=== PATIENT | female | born 1960 | race Hispanic/Latino ===

== ENCOUNTER 2018-07-23 08:47 | Emergency (ER) | payer BC | END 2018-07-23 10:15 | disposition home or self-care (01) | LOC: EDH 08:47 | DX: S96.212A Strain of intrinsic muscle and tendon at ankle and foot level, left foot, initial encounter (principal); E11.9 Type 2 diabetes mellitus without complications; I10 Essential (primary) hypertension; E78.5 Hyperlipidemia, unspecified; X58.XXXA Exposure to other specified factors, initial encounter; Y93.01 Activity, walking, marching and hiking; Y92.098 Other place in other non-institutional residence as the place of occurrence of the external cause; Y99.8 Other external cause status | CPT/HCPCS: 73610; 73620 ==

== ENCOUNTER 2024-01-09 10:24 | Emergency (ER) | payer BC, OTHER ==
[~2024-01-09] VITALS: Ht 172.7 cm; Wt 127.0 kg
--- NOTE | 2024-01-09 10:37 | ERN ---
General Chief Complaint: Abdominal Pain Stated Complaint: RUQ PAIN Time Seen by MD: 10:26 Time Seen by Midlevel: 10:26 Source: patient History of Present Illness Initial Comments 63-year-old female who presents to the ED due to abdominal pain ongoing for seven months. Patient reports pain has initiated since she had her gallbladder removed in [place] [address] Love. Patient states she has been having diarrhea but denies any fever, nausea, vomiting or further associated symptoms. Patient denies any significant past medical history. Allergies: Coded Allergies: No Known Allergies (Unverified Allergy, Unknown, 07/23/18) latex (Unverified Allergy, Unknown, PEELING OF SKIN, 07/23/18) Past Medical History Past Medical History: Diabetes-Type II, Hypertension Medical History Other: SLEEP APNEA, FATTY LIVER Past Surgical History: Cholecystectomy Surgical History Other: KNEE ROS Dictation Constitutional: Negative for fever,chills, and weight loss Eyes: Negative for injury, pain,redness, and discharge ENT: Negative for injury,pain or swelling Cardiovascular: Negative for chest pain, palpitations, and edema Respiratory: Negative for shortness of breath, cough, and wheezing, Abdomen/GI: Positive for abdominal pain Negative for nausea, vomiting, diarrhea, and constipation Back: Negative for injury and pain : Negative for painful urination, bleeding or discharge MS/Extremity: Negative for injury and deformity Skin: Negative for rash, and discoloration Neuro: Negative for headache, weakness, numbness, tingling, and seizure Psych: Negative for suicide ideation, homicidal ideation, and hallucinations Physical Exam Physical Exam Dictation General: awake, alert, no acute distress Head/Face: Normocephalic, atraumatic Eyes: normal conjunctiva ENT: oral cavity clear, oral mucosa moist Neck: Trachea midline, supple, no nuchal rigidity Cardiovascular: RRR, normal S1/S2 Respiratory: CTAB, no respiratory distress, no rales or wheezes Abdomen: Soft, non-tender, non-distended, no guarding or rebound. Skin: Warm, dry, normal turgor, no rash MS/Extremity: Pulses equal, no cyanosis, neurovascular intact, FROM Neuro: COAx4, GCS 15, no neurological deficits, normal gait, Psych: Normal behavior, mood, and affect normal Results Laboratory and Microbiology Lab and Micro Result Laboratory Tests Test 01/09/24 10:41 01/09/24 11:39 White Blood Count 6.5 K/uL (4.8-10.8) Red Blood Count 4.27 MIL/uL (4.00-5.50) Hemoglobin 13.1 g/dL (12.0-16.0) Hematocrit 39.4 % (36-48) Mean Corpuscular Volume 92.3 fL (79-99) Mean Corpuscular Hemoglobin 30.7 pg (27.0-33.0) Mean Corpuscular Hemoglobin Concent 33.2 g/dL (32.0-36.0) Red Cell Distribution Width 14.0 % (11.0-15.5) Platelet Count 255 K/uL (130-400) Mean Platelet Volume 10.0 fL (7.5-10.5) Immature Granulocyte % (Auto) 0.3 % (0-1) Neutrophils (%) (Auto) 50.1 % (40.0-77.0) Lymphocytes (%) (Auto) 38.7 % (21.0-51.0) Monocytes (%) (Auto) 6.9 % (3.0-13.0) Eosinophils (%) (Auto) 3.4 % (0.0-8.0) Basophils (%) (Auto) 0.6 % (0.0-5.0) Neutrophils # (Auto) 3.3 K/uL (1.8-7.7) Lymphocytes # (Auto) 2.5 K/uL (1.0-4.8) Monocytes # (Auto) 0.5 K/uL (0.1-1.0) Eosinophils # (Auto) 0.22 K/uL (0.00-0.70) Basophils # (Auto) 0.04 K/uL (0.00-0.20) Absolute Immature Granulocyte (auto 0.02 K/uL (0-1) Nucleated Red Blood Cells 0.0 % (0.0-0.19) Sodium Level 142 mmol/L (136-145) Potassium Level 4.4 mmol/L (3.5-5.1) Chloride Level 107 mmol/L (101-111) Carbon Dioxide Level 28 mmol/L (21-32) Blood Urea Nitrogen 20 mg/dL (7-18) H Creatinine 1.2 mg/dL (0.5-1.0) H Glomerular Filtration Rate Calc 52 mL/min (>90) Random Glucose 100 mg/dL (70-105) Total Calcium 9.4 mg/dL (8.5-10.1) Total Bilirubin 0.4 mg/dL (0.2-1.0) Aspartate Amino Transf (AST/SGOT) 34 U/L (10-37) Alanine Aminotransferase (ALT/SGPT) 35 U/L (12-78) Alkaline Phosphatase 71 U/L (50-136) Troponin I High Sensitivity 4 ng/L (4-50) Total Protein 7.6 g/dL (6.0-8.3) Albumin 3.6 g/dL (3.5-5.0) Lipase 177 U/L (16-77) H Urine Color LIGHT-YELLOW (YELLOW) Urine Appearance CLEAR (CLEAR) Urine pH 5.0 (5.0-8.0) Urine Specific [place] 1.019 (1.001-1.031) Urine Protein NEGATIVE mg/dL (NEGATIVE) Urine Glucose (UA) NEGATIVE mg/dL (NEGATIVE) Urine Ketones NEGATIVE mg/dL (NEGATIVE) Urine Occult Blood SMALL (NEGATIVE) H Urine Nitrate NEGATIVE (NEGATIVE) Urine Bilirubin NEGATIVE mg/dL (NEGATIVE) Urine Urobilinogen 0.2 mg/dL (0.2-1.0) Urine Leukocyte Esterase NEGATIVE Benedict/uL Urine RBC 2-5 /HPF (0-1) H Urine WBC 0-1 /HPF (0-1) Urine Bacteria None /HPF (None Seen) Labs Reviewed?: Yes EKG/XRAY/US/CT/MRI EKG Comment Date: 01/09/2024 Time: 10:38 Rate: 74 EKG interpretation: Sinus rhythm, no STEMI Reviewed by ED Attending CT Scan Comment REASON: RUQ Pain ORDERING PHYSICIAN: ALISA HANSON PROCEDURE: ABD PEL WO - CT ABDOMEN/PELVIS W/O CONTRAST CT ABDOMEN/PELVIS W/O CONTRAST HISTORY: Right upper abdominal pain COMPARISON: None TECHNIQUE: Multiple sequential axial images of the abdomen and pelvis were obtained from the dome of the diaphragm through symphysis pubis. Patient was not given contrast through intravenous route. Oral contrast was not given. Fusion of L2-L3 vertebral bodies and L4-L5 vertebral bodies are noted. FINDINGS: No pleural effusion is seen bilaterally. There is no evidence of parenchymal disease or pulmonary nodule of the visualized lower lungs. Degenerative changes of the thoracolumbar spine are present. The heart is not enlarged. Liver is enlarged with fatty changes measuring 17 cm. Postcholecystectomy changes are seen. There is bilateral renal cortical scarring. The liver, spleen, adrenal glands and pancreas are unremarkable. There is no evidence of hydronephrosis bilaterally. No evidence of renal stone is seen. Fecal material is seen in the colon. There is diverticulosis. There are normal size retroperitoneal and mesenteric lymph nodes. No ascites is seen. Atherosclerotic changes are present. Pelvic sidewalls are symmetric bilaterally. Bladder is poorly distended. Uterus is prominent for patient's age may be related to fibroid uterus. IMPRESSION: 1. No acute findings. CT was performed with one or more following dose reduction techniques: automated exposure control, adjustment of the mA and kv according to patient's size, or use of a iterative reconstruction technique. MDM MDM: Differential diagnosis: Rationale: 63-year-old female who presents to the ED due to abdominal pain ongoing for seven months. Patient reports pain has initiated since she had her gallbladder removed in [place] [address] Love. Patient states she has been having diarrhea but denies any fever, nausea, vomiting or further associated symptoms. Patient denies any significant past medical history. Labs obtained indicate BUN and creatinine elevation consistent with chronic changes otherwise labs are nonspecific. UA negative for urinary tract infection. EKG within normal limits, negative troponin. CT abdomen and pelvis indicates changes post cholecystectomy, and fatty liver. Patient was administered GI cocktail in the ED. Educated on findings and diagnosis. Advised to follow up with PCP. Return to the ED if any worsening symptoms. Patient verbalized understanding. Patient stable for discharge. There are no social concerns with this patient. I independently interpreted the test that were performed, results were reviewed by me and considered findings on radiology if ordered. Medical management and examination interpretation discussions were had by me with other qualified healthcare professionals as indicated for the patient's care. ED Course Orders Procedure Category Date Status Time Cbc With Differential LAB 01/09/24 Complete 10:27 Comprehensive LAB 01/09/24 Complete Metabolic Panel 10:27 Urinalysis LAB 01/09/24 Complete W/Microscopic 10:27 Troponin I High LAB 01/09/24 Complete Sensitivity 10:28 12 Lead Ekg Tracing- EKG 01/09/24 Complete Technical 10:28 Lipase LAB 01/09/24 Complete 10:41 Ct Abdomen/Pelvis W/O CT 01/09/24 Resulted Contrast 11:36 Iohexol (Omnipaque) PHA 01/09/24 Complete 11:37 Mag/Alum/Simeth 30ml PHA 01/09/24 In Process (Maalox Plus 30ml) 13:00 Pantoprazole 40mg Tab PHA 01/09/24 In Process (Protonix 40mg Tab 13:00 Lidocaine Hcl 2% PHA 01/09/24 In Process Viscous (Lidocaine Hcl 13:00 Current Medications Medications (Trade) Dose Ordered Sig/Yolanda Route PRN Reason Start Time Stop Time Status Last Admin Dose Admin Al Hydroxide/Mg Hydroxide (MAALox PLUS 30ML) 30 ml ONCE ONCE PO 01/09/24 13:00 01/09/24 13:01 Iohexol (Omnipaque) 75 ml STK-MED ONCE IV 01/09/24 11:37 01/09/24 11:38 DC Lidocaine HCl (Lidocaine HCl 2% Viscous) 10 ml ONCE ONCE PO 01/09/24 13:00 01/09/24 13:01 Pantoprazole Sodium (PROTonix 40MG TAB) 40 mg ONCE ONCE PO 01/09/24 13:00 01/09/24 13:01 Vital Signs Date Time Temp Pulse Resp B/P (MAP) Pulse Ox O2 Delivery O2 Flow Rate FiO2 01/09/24 11:34 98.1 75 16 150/65 100 Room Air* 0 21 01/09/24 10:26 97.9 77 16 155/70 100 Room Air 0 DX & DISP Disposition: Discharge Departure Impression: Primary Impression: Right upper quadrant abdominal pain Condition: Stable Scripts Pantoprazole Sodium (Protonix) 20 Mg Tablet. 20 MG PO DAILY for 30 Days, #30 TAB Prov: ALISA HANSON 01/09/24 Additional Instructions: Discharge home. Rest. Follow up with primary care DrAttila in 24 hours. Return to the ER for any acute changes or worsening symptoms. If any medications were prescribed take as directed. Okay to continue home medications unless otherwise discussed during your visit in the emergency room today. Patient was also advised to follow-up with primary care physician in 1 to 2 days for continued monitoring. Referrals: HARPREET DURBIN (PCP) I participated in the following activities of this patient's care: For this patient encounter, I reviewed the PA or REPAIRER documentation, treatment plan, and medical decision making. I did not have [id number] time with this patient. I will sign as the reviewing Dr. And agree with the treatment plan and disposition. ALISA HANSON Jan 09, 2024 10:37
[2024-01-09 10:58] LABS: BASOPHILS # (AUTO) 0.04 K/uL (0.00-0.20); BASOPHILS % (AUTO) 0.6 % (0.0-5.0); EOSINOPHILS # (AUTO) 0.22 K/uL (0.00-0.70); EOSINOPHILS % (AUTO) 3.4 % (0.0-8.0); HEMATOCRIT 39.4 % (36-48); IMMATURE GRANULOCYTE ABSOLUTE 0.02 K/uL (0-1); LYMPHOCYTES # (AUTO) 2.5 K/uL (1.0-4.8); LYMPHOCYTES % (AUTO) 38.7 % (21.0-51.0); MEAN CORPUSCULAR HEMOGLOBIN 30.7 pg (27.0-33.0); MEAN CORPUSCULAR HGB CONC 33.2 g/dL (32.0-36.0); MEAN CORPUSCULAR VOLUME 92.3 fL (79-99); MONOCYTES # (AUTO) 0.5 K/uL (0.1-1.0); MONOCYTES % (AUTO) 6.9 % (3.0-13.0); NEUTROPHILS # (AUTO) 3.3 K/uL (1.8-7.7); NEUTROPHILS % (AUTO) 50.1 % (40.0-77.0); PLATELET COUNT (AUTO) 255 K/uL (130-400); RED BLOOD CELL COUNT(AUTO) 4.27 MIL/uL (4.00-5.50); WHITE BLOOD COUNT (AUTO) 6.5 K/uL (4.8-10.8)
[2024-01-09 11:09] LABS: CREATININE 1.2 mg/dL (0.5-1.0); POTASSIUM 4.4 mmol/L (3.5-5.1)
--- NOTE | 2024-01-09 11:10 | EKG ---
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
[2024-01-09 11:14] LABS: ALBUMIN 3.6 g/dL (3.5-5.0); BILIRUBIN,TOTAL 0.4 mg/dL (0.2-1.0); TOTAL PROTEIN, SERUM 7.6 g/dL (6.0-8.3)
[2024-01-09 11:34] VITALS: BP 150/65; PULSE 75; RESP 16; TEMP 98; O2SAT 100
[2024-01-09] MEDS ORDERED: IOHEXOL-350 75 ML VIAL IV ONE (11:37)
[2024-01-09 11:56] LABS: APPEARANCE,URINE CLEAR (CLEAR); BILIRUBIN,URINE NEGATIVE (NEGATIVE); COLOR,URINE LIGHT-YELLOW (YELLOW); GLUCOSE, URINE (UA) NEGATIVE (NEGATIVE); KETONES,URINE NEGATIVE (NEGATIVE); LEUKOCYTE ESTERASE ,URINE NEGATIVE Leu/uL (NEGATIVE); NITRATE,URINE NEGATIVE (NEGATIVE); OCCULT BLOOD,URINE SMALL (NEGATIVE); PROTEIN,URINE NEGATIVE (NEGATIVE); UROBILINOGEN,URINE 0.2 mg/dL (0.2-1.0)
[2024-01-09 11:57] LABS: MUCUS,URINE RARE LPF (None Seen); WBC,URINE 0-1 /HPF (0-1)
--- NOTE | 2024-01-09 12:30 | HMCIMG ---
CT ABDOMEN/PELVIS W/O CONTRAST HISTORY: Right upper abdominal pain COMPARISON: None TECHNIQUE: Multiple sequential axial images of the abdomen and pelvis were obtained from the dome of the diaphragm through symphysis pubis. Patient was not given contrast through intravenous route. Oral contrast was not given. Fusion of L2-L3 vertebral bodies and L4-L5 vertebral bodies are noted. FINDINGS: No pleural effusion is seen bilaterally. There is no evidence of parenchymal disease or pulmonary nodule of the visualized lower lungs. Degenerative changes of the thoracolumbar spine are present. The heart is not enlarged. Liver is enlarged with fatty changes measuring 17 cm. Postcholecystectomy changes are seen. There is bilateral renal cortical scarring. The liver, spleen, adrenal glands and pancreas are unremarkable. There is no evidence of hydronephrosis bilaterally. No evidence of renal stone is seen. Fecal material is seen in the colon. There is diverticulosis. There are normal size retroperitoneal and mesenteric lymph nodes. No ascites is seen. Atherosclerotic changes are present. Pelvic sidewalls are symmetric bilaterally. Bladder is poorly distended. Uterus is prominent for patient's age may be related to fibroid uterus. IMPRESSION: 1. No acute findings. CT was performed with one or more following dose reduction techniques: automated exposure control, adjustment of the mA and kv according to patient's size, or use of a iterative reconstruction technique.
[2024-01-09] MEDS ORDERED: PANT20TA PO (12:52)
[2024-01-09] MEDS: PANTOPrazole 40 MG TAB DR PO ONE (12:54)
[2024-01-09] MEDS: LIDOCAINE HCL 2% VISCOUS 15 ML UDCUP PO ONE (12:54)
[2024-01-09] MEDS: MAG/ALUM/SIMETH 30 ML UDCUP PO ONE (12:54)
== END 2024-01-09 13:05 | disposition home or self-care (01) ==
LOC: EDH 10:24
DX: R10.11 Right upper quadrant pain (principal); E11.9 Type 2 diabetes mellitus without complications; I10 Essential (primary) hypertension; Z90.49 Acquired absence of other specified parts of digestive tract
CPT/HCPCS: 36415; 74176; 80053; 81001; 83690; 84484; 85025; 93005; 99284; Q9967